=== PATIENT | female | born 1965 | race Caucasian/White ===

== ENCOUNTER 2023-04-21 19:01 | Emergency (ER) | payer OTHER, SELFPAY ==
[2023-04-21 19:34] VITALS: BP 178/99; PULSE 77; RESP 20; TEMP 36.7; O2SAT 96; BMI 29.8
--- NOTE | 2023-04-21 19:49 | ECG_ITS ---
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
[2023-04-21 20:12] LABS: Basophils Percent Auto 0.3 % (0.2-2.0); Hematocrit 41.3 % (36.0-48.0); Hemoglobin 13.7 g/dL (12.0-16.0); Immature Granulocytes Abs Auto 0.09 10^3/uL (0.00-0.03); Immature Granulocytes Pct Auto 0.8 % (0.0-0.5); Lymphocytes Absolute Auto 1.6 10^3/uL (1.2-3.8); Lymphocytes Percent Auto 14.8 % (20.5-60.0); Mean Corpuscular HGB Conc 33.2 g/dL (29.9-35.2); Mean Corpuscular Hemoglobin 30.6 pg (26.7-34.0); Mean Corpuscular Volume 92.4 fL (81.0-99.0); Mean Platelet Volume 9.9 fL (9.5-13.5); Monocytes Absolute Auto 0.3 10^3/uL (0.3-0.8); Monocytes Percent Auto 2.3 % (1.7-12.0); Neutrophils Absolute Auto 9.1 10^3/uL (1.4-6.5); Neutrophils Percent Auto 81.8 % (43.0-75.0); Platelet Count 263 10^3/uL (150-450); Red Blood Count 4.47 10^6/uL (4.20-5.40); Red Cell Distribution Width 13.3 % (11.0-15.0); White Blood Count 11.1 10^3/uL (4.0-11.0)
[2023-04-21 20:28] LABS: Alanine Aminotransferase 33 U/L (14-59); Albumin Level 3.6 g/dL (3.4-5.0); Alkaline Phosphatase 68 U/L (46-116); Anion Gap 13.1; Aspartate Amino Transferase 14 U/L (15-37); BUN Creatinine Ratio 19.7; Bilirubin Total 0.4 mg/dL (0.2-1.0); Calcium 8.5 mg/dL (8.5-10.1); Carbon Dioxide 26.6 mmol/L (21.0-32.0); Chloride 105 mmol/L (98-107); Estimated GFR (African America >60 (>=60); Estimated GFR (Non-African Ame >60 (>=60); Globulin 3.5 g/dL; Glucose 131 mg/dL (74-106); Potassium 3.7 mmol/L (3.5-5.1); Sodium 141 mmol/L (136-145); Total Protein 7.1 g/dL (6.4-8.2)
[2023-04-21 20:31] LABS: Lactate/Lactic Acid 1.5 mmol/L (0.4-2.0); Troponin I High Sensitivity 4.5 pg/mL (4.0-51.3)
--- NOTE | 2023-04-21 21:09 | ED_ITS ---
HPI - Abdominal Pain General Chief Complaint: Abdominal Pain Stated Complaint: ABD PAIN Time Seen by Provider: 04/21/23 19:29 Source: patient Mode of arrival: walk-in Limitations: no limitations History of Present Illness HPI narrative: patient presents with upper abdominal pain that has been waxing and waning for about a week. Eating does not affect the pain. She localizes it along the lower rib cage, which is tender to the touch. 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 The patient admits to some heartburn symptoms. Pain goes to the mid back sometimes - different than her sciatica pain. No black, tarry stools. No nausea, vomiting or diarrhea. She does not take any PPI or OTC antacid. She does not have a PCP. Related Data Previous Rx's Medication Instructions Recorded pantoprazole 40 mg tablet,delayed 40 mg PO DAILY #30 tabs 04/21/23 release (Protonix) Exam Narrative Exam Narrative: Nurses notes and vital signs reviewed and patient is not hypoxic. afebrile General: Well-appearing and in no apparent distress. Skin: Warm, dry, no pallor noted. No rash. Eye: Pupils are equal, round and EOMI. No scleral icterus. Cardiovascular: Regular Rate and Rhythm without murmur, gallop or rub. Respiratory: No accessory muscle use or respiratory distress. Lungs are clear to auscultation, no wheezing, rales or rhonchi Chest Wall: tenderness along the lower rib cage anteriorly Back: No CVA tenderness Musculoskeletal: normal ROM GI: Abdomen is soft, non-distended. Normal bowel sounds. No masses appreciated. No tenderness to palpation. No rebound, guarding, or rigidity noted. Neurological: A&O x4. No cranial nerve dysfunction observed. No truncal ataxia. Moves all extremities. Sensation intact. Psychiatric: Cooperative and interactive. Normal mood and affect. Constitutional Vital Signs, click to edit/add: Last Vital Signs Temp 98.1 F 04/21/23 19:34 Pulse 87 04/21/23 21:54 Resp 17 04/21/23 21:54 BP 140/89 04/21/23 21:54 Pulse Ox 96 04/21/23 21:54 O2 Del Method Room Air 04/21/23 21:54 Course Vital Signs Vital signs: Vital Signs Temperature 98.1 F 04/21/23 19:34 Pulse Rate 77 04/21/23 19:34 Respiratory Rate 20 04/21/23 19:34 Blood Pressure 178/99 H 04/21/23 19:34 Pulse Oximetry 96 04/21/23 19:34 Oxygen Delivery Method Room Air 04/21/23 19:34 Temperature 98.1 F 04/21/23 19:34 Pulse Rate 87 04/21/23 21:54 Respiratory Rate 17 04/21/23 21:54 Blood Pressure 140/89 04/21/23 21:54 Pulse Oximetry 96 04/21/23 21:54 Oxygen Delivery Method Room Air 04/21/23 21:54 MDM - Abdominal Pain MDM Narrative Medical decision making narrative: CBC with borderline elevation of white blood cell count at 11k. Unremarkable CMP. Negative lactate. Negative lipase. Patient's exam suggests muscle or skeletal etiology with tenderness along the inferior portion of the rib cage anteriorly. She was sent for x-rays of the chest and abdomen. x-rays of the abdomen show moderate stool burden. Chest x-ray was unremarkable. The patient was discharged home with a prescription for Protonix. I also prescribed some MiraLAX for her and instructed her to increase her oral fluid intake over the next few days. Tylenol to be taken for the lower anterior rib cage tenderness - avoid NSAIDs. She was given a list of physicians in the area who are taking new patients and I encouraged her to follow-up to get appropriate yearly physical examinations and screening for chronic conditions. Lab Data Attestation: I reviewed the patient's lab results. Labs: Lab Results 04/21/23 Range/Units 20:05 WBC 11.1 H (4.0-11.0) 10^3/uL RBC 4.47 (4.20-5.40) 10^6/uL Hgb 13.7 (12.0-16.0) g/dL Hct 41.3 (36.0-48.0) % MCV 92.4 (81.0-99.0) fL MCH 30.6 (26.7-34.0) pg MCHC 33.2 (29.9-35.2) g/dL RDW 13.3 (11.0-15.0) % Plt Count 263 (150-450) 10^3/uL MPV 9.9 (9.5-13.5) fL Neut % (Auto) 81.8 H (43.0-75.0) % Lymph % (Auto) 14.8 L (20.5-60.0) % [place] % (Auto) 2.3 (1.7-12.0) % Eos % (Auto) 0.0 L (0.9-7.0) % Baso % (Auto) 0.3 (0.2-2.0) % Neut # (Auto) 9.1 H (1.4-6.5) 10^3/uL Lymph # (Auto) 1.6 (1.2-3.8) 10^3/uL [place] # (Auto) 0.3 (0.3-0.8) 10^3/uL Eos # (Auto) 0.0 (0.0-0.7) 10^3/uL Baso # (Auto) 0.0 (0.0-0.1) 10^3/uL Abs Immat Gran (auto) 0.09 H (0.00-0.03) 10^3/uL Imm/Tot Granulo (auto) 0.8 H (0.0-0.5) % Sodium 141 (136-145) mmol/L Potassium 3.7 (3.5-5.1) mmol/L Chloride 105 (98-107) mmol/L Carbon Dioxide 26.6 (21.0-32.0) mmol/L Anion Gap 13.1 BUN 15.0 (7.0-18.0) mg/dL Creatinine 0.76 (0.55-1.02) mg/dL Est GFR ( Amer) >60 (>=60) Est GFR (Non-Af Amer) >60 (>=60) BUN/Creatinine Ratio 19.7 Glucose 131 H (74-106) mg/dL Lactate 1.5 (0.4-2.0) mmol/L Calcium 8.5 (8.5-10.1) mg/dL Total Bilirubin 0.4 (0.2-1.0) mg/dL AST 14 L (15-37) U/L ALT 33 (14-59) U/L Alkaline Phosphatase 68 (46-116) U/L Troponin I High Sens 4.5 (4.0-51.3) pg/mL Total Protein 7.1 (6.4-8.2) g/dL Albumin 3.6 (3.4-5.0) g/dL Globulin 3.5 g/dL Albumin/Globulin Ratio 1.0 Lipase 32.0 (16.0-77.0) U/L Imaging Data Abdominal x-ray: Radiologist's impression: Patient Name: NANCY SANTOS MRN: [id number] date: 1965 Sex: F Assigned Patient Location: ER Current Patient Location: Accession/Order Number: [id number] Exam Date: 04/21/2023 21:18 Report Date: 04/21/2023 21:57 At the request of: JACQUEI ARMSTRONG Procedure: XR acute abdomen series XR acute abdomen series 04/21/2023 9:18 PM EST CLINICAL INDICATION: Upper abdominal pain COMPARISON: None. TECHNIQUE: Upright and supine AP views of the chest, abdomen and pelvis. FINDINGS: There are no tubes or implants noted. The cardiomediastinal silhouette and pulmonary vasculature are within normal limits. Patchy opacities are seen in the left infrahilar region and left lung base. No pneumothorax or pleural effusion. No definite free intraperitoneal air, portal venous gas or pneumatosis intestinalis. Nondilated small and large bowel loops are seen. Stool filled colon and rectum, moderate to large stool burden. No suspicious calcifications. The bones demonstrate degenerative changes. The soft tissues are unremarkable. IMPRESSION: Patchy left infrahilar and left basilar airspace disease, this may represent atelectasis or pneumonia. Stool-filled colon rectum, moderate to large stool burden. No dilated small bowel loops suggest obstruction. Electronically authenticated by: ENDY LOPEZ Date: 04/21/2023 21:57 ECG Data Attestation: I personally reviewed and interpreted this ECG as follows: Interpretation: EKG interpretation: Emergency Department physician interpretation. Normal sinus rhythm at 80bpm. RVCD - RSR V1/V2, low QRS in chest leads. No ST segment elevation or depression. Discharge Plan Discharge Chief Complaint: Abdominal Pain Clinical Impression: Acute chest wall pain, Abdominal pain, Fecal retention Patient Disposition: Home, Self-Care Time of Disposition Decision: 21:35 Condition: Good Mode of Transportation: Private Vehicle Prescriptions / Home Meds: New pantoprazole [Protonix] 40 mg tablet,delayed release (DR/EC) 40 mg PO DAILY Qty: 30 0RF Instructions: Abdominal Pain (ED), Chest Wall Pain (ED) Stand Alone Forms: Portal Instructions Referrals: Physician,Non-Staff, MD [Primary Care Provider] - 1 week Discharge Date/Time: 04/21/23 21:55
--- NOTE | 2023-04-21 21:09 | XR_ITS ---
The [address] [address] Patient Name: NANCY SANTOS MRN: [id number] date: 1965 Sex: F Assigned Patient Location: ER Current Patient Location: Accession/Order Number: [id number] Exam Date: 04/21/2023 21:18 Report Date: 04/21/2023 21:57 At the request of: JACQUIE ARMSTRONG Procedure: XR acute abdomen series XR acute abdomen series 04/21/2023 9:18 PM EST CLINICAL INDICATION: Upper abdominal pain COMPARISON: None. TECHNIQUE: Upright and supine AP views of the chest, abdomen and pelvis. FINDINGS: There are no tubes or implants noted. The cardiomediastinal silhouette and pulmonary vasculature are within normal limits. Patchy opacities are seen in the left infrahilar region and left lung base. No pneumothorax or pleural effusion. No definite free intraperitoneal air, portal venous gas or pneumatosis intestinalis. Nondilated small and large bowel loops are seen. Stool filled colon and rectum, moderate to large stool burden. No suspicious calcifications. The bones demonstrate degenerative changes. The soft tissues are unremarkable. XR/XR acute abdomen series IMPRESSION: Patchy left infrahilar and left basilar airspace disease, this may represent atelectasis or pneumonia. Stool-filled colon rectum, moderate to large stool burden. No dilated small bowel loops suggest obstruction. Electronically authenticated by: ENDY LOPEZ Date: 04/21/2023 21:57
[2023-04-21 21:36] VITALS: O2SAT 97
[2023-04-21 21:40] VITALS: PULSE 82; RESP 14; O2SAT 98
[2023-04-21 21:42] VITALS: PULSE 85; RESP 18; O2SAT 97
[2023-04-21 21:49] VITALS: BP 142/89; PULSE 80; RESP 19
[2023-04-21 21:54] VITALS: BP 140/89; PULSE 87; RESP 17; O2SAT 96
== END 2023-04-21 21:55 | disposition home or self-care (01) ==
PROVIDERS: Physician Assistant; Emergency Provider Emergency Medicine
DX: R10.9 Unspecified abdominal pain (principal); R07.89 Other chest pain; K59.00 Constipation, unspecified
CPT/HCPCS: 36415; 74022; 80053; 83605; 83690; 84484; 85025; 93005; 99285